=== PATIENT | female | born 1980 | race Native Hawaiian/Other Pacific Islander ===

== ENCOUNTER 2018-08-19 11:26 | Emergency (ER) | payer BC ==
[~2018-08-19] VITALS: Ht 157.5 cm; Wt 52.2 kg
[2018-08-19] MEDS ORDERED: MORPHINE SULFATE 4 MG/1 ML DISP.SYRIN ONE (11:42)
[2018-08-19] MEDS: MORPHINE SULFATE 2 MG/1 ML DISP.SYRIN IV ONE (11:44)
[2018-08-19] MEDS ORDERED: ONDANSETRON 4 MG/2 ML VIAL ONE (11:45)
[2018-08-19] MEDS: ONDANSETRON IV *ER 4 MG/2 ML VIAL IV ONE (11:48)
[2018-08-19] MEDS ORDERED: LEVO25TA2 PO (11:49)
[2018-08-19] MEDS ORDERED: LEVO50TA PO (11:49)
--- NOTE | 2018-08-19 14:32 | NUR ---
Patient discharged to home in stable conditon with family. Written and verbal after care instructions given. Patient verbalizes understanding of instructions.
[2018-08-19] MEDS ORDERED: HYDROCODONE/APAP 5-325MG TABLET ONE (14:37)
[2018-08-19] MEDS: HYDROCODONE/APAP 5-325MG TABLET PO ONE (14:38)
== END 2018-08-19 14:39 | disposition home or self-care (01) ==
LOC: ER 11:26
DX: S82.402A Unspecified fracture of shaft of left fibula, initial encounter for closed fracture (principal); E03.9 Hypothyroidism, unspecified; W10.9XXA Fall (on) (from) unspecified stairs and steps, initial encounter; Y93.89 Activity, other specified; Y92.89 Other specified places as the place of occurrence of the external cause; Y99.8 Other external cause status
CPT/HCPCS: 73610; 96374; 96375; 99284; A4663; J2270; J2405